=== PATIENT | male | born 1980 | race Caucasian/White ===

== ENCOUNTER 2023-07-01 10:23 | Outpatient (RCR) | payer OTHER, SELFPAY | END 2023-07-01 23:59 | disposition home or self-care (01) | LOC: RPT 10:23 | PROVIDERS: ATTENDING PHYSICIAN Family Medicine | DX: M25.512 Pain in left shoulder (principal); R20.2 Paresthesia of skin; Z73.6 Limitation of activities due to disability | CPT/HCPCS: 97110; 97140 ==